=== PATIENT | female | born 1935 ===

== ENCOUNTER 2020-04-06 14:22 | Emergency (ER) | payer OTHER ==
[~2020-04-06] VITALS: Ht 165.1 cm; Wt 68.0 kg
[2020-04-06] MEDS ORDERED: PLAVIX75 MG (14:42)
[2020-04-06] MEDS ORDERED: ATORVASTATIN CA10 MG (14:42)
[2020-04-06] MEDS ORDERED: LASIX20 MG (14:42)
== END 2020-04-06 18:57 | disposition home or self-care (01) ==
LOC: ER 14:22
DX: S82.432A Displaced oblique fracture of shaft of left fibula, initial encounter for closed fracture (principal); S80.211A Abrasion, right knee, initial encounter; W18.09XA Striking against other object with subsequent fall, initial encounter; Y93.89 Activity, other specified; Y92.413 State road as the place of occurrence of the external cause; Y99.8 Other external cause status